=== PATIENT | female | born 1940 | race Caucasian/White ===

== ENCOUNTER → 2020-01-02 12:33 | Outpatient (BNVA) | payer MEDICARE, SELFPAY | PROVIDERS: Family Provider Internal Medicine; PCP Internal Medicine; Visit Provider Internal Medicine | DX: K75.4 Autoimmune hepatitis (principal); E03.9 Hypothyroidism, unspecified; E11.9 Type 2 diabetes mellitus without complications; Z86.718 Personal history of other venous thrombosis and embolism | CPT/HCPCS: 80053; 82105; 84443; 85025; 85610 ==

== ENCOUNTER → 2020-10-08 10:37 | Outpatient (BNVA) | payer MEDICARE, SELFPAY | PROVIDERS: Family Provider Internal Medicine; PCP Internal Medicine; Visit Provider Internal Medicine | DX: K75.4 Autoimmune hepatitis (principal) | CPT/HCPCS: 80053; 84443; 85025 ==

== ENCOUNTER → 2021-07-22 10:12 | Outpatient (BNVA) | payer MEDICARE, SELFPAY | PROVIDERS: Family Provider Internal Medicine; PCP Internal Medicine; Visit Provider Internal Medicine | DX: K75.4 Autoimmune hepatitis (principal); M48.061 Spinal stenosis, lumbar region without neurogenic claudication; G89.4 Chronic pain syndrome; Z86.718 Personal history of other venous thrombosis and embolism; Z79.899 Other long term (current) drug therapy | CPT/HCPCS: 80053; 80061; 83550; 84443; 85025; 85651 ==

== ENCOUNTER 2024-04-14 12:32 | Inpatient (IN) | payer MEDICARE, SELFPAY ==
[2024-04-14] VITALS (16 sets, daily range): BP systolic 119–188; BP diastolic 67–106; PULSE 46–62; RESP 14–18; TEMP 37–37.2; O2SAT 93–96; BMI 17.4
--- NOTE | 2024-04-14 12:56 | XRR_ITS ---
PROCEDURE INFORMATION: Exam: XR Right Hip Exam date and time: 04/14/2024 1:27 PM Age: 83 years old Clinical indication: Injury or trauma; Fall; Blunt trauma (contusions or hematomas); Right; Hip TECHNIQUE: Imaging protocol: Radiologic exam of the right hip. Views: 1 view hip with pelvis when performed. COMPARISON: CR XR lumbar spine f/e only [id number] 07/04/2017 3:54 PM FINDINGS: Bones/joints: Acute mildly displaced impacted femoral neck fracture on the right. Pelvic ring is grossly intact. Sacrum and coccyx are mostly obscured by bowel gas/stool. Large stool burden. Soft tissues: No gross soft tissue abnormality. XR/XR hip RT 2-3V wo/w pel* [id number] IMPRESSION: 1. Acute femoral neck fracture on the right.
--- NOTE | 2024-04-14 12:56 | XRR_ITS ---
PROCEDURE INFORMATION: Exam: XR Left Humerus Exam date and time: 04/14/2024 1:27 PM Age: 83 years old Clinical indication: Injury or trauma; Fall; Blunt trauma (contusions or hematomas); Arm, upper; Left TECHNIQUE: Imaging protocol: Radiologic exam of the left humerus. Views: 2 or more views. COMPARISON: No relevant prior studies available. FINDINGS: Bones/joints: The humerus is grossly intact. No evidence of fracture. Soft tissues: No gross soft tissue abnormality. XR/[place] [id number] IMPRESSION: 1. No evidence of fracture or malalignment.
--- NOTE | 2024-04-14 13:36 | XRR_ITS ---
PROCEDURE INFORMATION: Exam: XR Right Femur Exam date and time: 04/14/2024 1:38 PM Age: 83 years old Clinical indication: Injury or trauma; Fall; Blunt trauma; Hip; Right; Additional info: Hip FX TECHNIQUE: Imaging protocol: Radiologic exam of the right femur. Views: 2 views. COMPARISON: CR XR hip RT 2-3V wo/w pel* [id number] 04/14/2024 1:27 PM FINDINGS: Bones/joints: Acute mildly displaced/impacted femoral neck fracture on the right. Mid-distal femur is grossly intact. Chondrocalcinosis of the menisci noted. Soft tissues: Grossly unremarkable. XR/XR femur RT min 2V* [id number] IMPRESSION: 1. Acute femoral neck fracture on the right.
--- NOTE | 2024-04-14 13:36 | XRR_ITS ---
PROCEDURE INFORMATION: Exam: XR Chest Exam date and time: 04/14/2024 1:38 PM Age: 83 years old Clinical indication: Cough and dyspnea; Additional info: Dyspnea/cough TECHNIQUE: Imaging protocol: Radiologic exam of the chest. Views: 1 view. COMPARISON: [place] [id number] 04/14/2024 1:27 PM FINDINGS: Lungs: No focal consolidation. Suspected emphysematous changes. Pleural spaces: No evidence of pneumothorax. No evidence of pleural effusion. Heart/Mediastinum: Cardiomediastinal silhouette is within normal limits. Bones/joints: No evidence of acute osseous abnormality. XR/XR chest 1V portable [id number] IMPRESSION: 1. No acute cardiopulmonary abnormality.
--- NOTE | 2024-04-14 13:39 | ED_ITS ---
HPI - Fall 2 General: Chief Complaint: Fall Stated Complaint: fall - right hip/leg injury L arm injury Time Seen by Provider: 04/14/24 12:56 History of Present Illness: 83-year-old female presents emergency ro om after a fall this morning around 5 AM. She is a ground-level mechanical fall when she got up to answer the phone. Primarily complaining of right hip pain she has not been able to bear weight since she thought she is bruised it to try and waited out she did not come in until about 1:00 this afternoon. She initially told me she is not on any anticoagulants review of her chart showed she is on warfarin she said she started that for blood clots that were occurred several years ago but she only takes it intermittently. She also complaining little bit injury to her left arm. No chest pain or shortness of breath. Associated symptoms-after fall: Denies abdominal pain, chest pain or neck pain Related Data Home Medications Medication Instructions Recorded Confirmed cholecalciferol (vitamin D3) 125 5,000 unit PO DAILY 05/17/19 04/14/24 mcg (5,000 unit) capsule ferrous sulfate 325 mg (65 mg 325 mg PO DAILY 05/17/19 04/14/24 iron) tablet multivitamin 1 tab PO QAM 05/17/19 04/14/24 aspirin 325 mg tablet 325 mg PO Q4H 04/14/24 04/14/24 furosemide 80 mg tablet 80 mg PO DAILY PRN Edema 04/14/24 04/14/24 potassium chloride 20 mEq 20 meq PO DAILY 04/14/24 04/14/24 tablet,extended release(part/cryst) Previous Rx's Medication Instructions Recorded levothyroxine 100 mcg tablet 100 mcg PO DAILY #90 tabs 06/28/21 prednisone 5 mg tablet 5 mg PO DAILY #90 tabs 06/28/21 ropinirole 1 mg tablet 1 mg PO BID #180 tabs 06/28/21 warfarin 5 mg tablet 5 mg PO DAILY #90 tabs 06/28/21 fentanyl 75 mcg/hr transdermal 1 patch topical Q48H 1 month #15 ea 04/05/22 patch oxycodone-acetaminophen 10 mg-325 1 tab PO Q6H PRN pain 1 month #90 04/05/22 mg tablet (Percocet) tabs Allergies Allergy/AdvReac Type Severity Reaction Status Date / Time alendronate sodium Allergy Unknown Verified 04/14/24 13:11 [From Fosamax] azathioprine [From Imuran] Allergy Unknown Verified 04/14/24 13:11 risedronate sodium Allergy Unknown Verified 04/14/24 13:11 [From Actonel] tetracycline Allergy Unknown Verified 04/14/24 13:11 Review of Systems 2 Const: Denies: fever(s) or chills Card: Denies: chest pain Resp: Denies: dyspnea GI: Denies: abdominal pain : Denies: dysuria, urinary frequency or urinary urgency Musc: Reports: joint pain (Right hip); Denies: neck pain or back pain Skin/Breast: Denies: rash PFSH ED 2 PFSH: Medical History Iron deficiency Thyroid disease RLS (restless legs syndrome) Degenerative lumbar spinal stenosis Personal history of malignant neoplasm of other parts of uterus Chronic pain Autoimmune hepatitis Surgical History S/P laminectomy with spinal fusion S/P hysterectomy S/P knee surgery X3 , RIGHT S/P appendectomy Family History Mother Cancer LUNG CANCER Brother Heart disease Diabetes Other Myocardial infarction Social History Smoking and tobacco/nicotine status: former use of tobacco/nicotine Alcohol intake: never Substance/Drug Use: never Lives independently: Yes Household members: spouse Housing: House Marital status: Current occupational status: disabled Physical Exam 2 Const: GENERAL APPEARANCE: cooperative ORIENTATION/CONSCIOUSNESS: Yes awake, Yes oriented to person, Yes oriented to place and Yes oriented to time HENMT: COMMON NORMALS: normocephalic, atraumatic and hearing grossly normal bilaterally HEAD & SCALP: normocephalic and atraumatic Resp: COMMON NORMALS: normal respiratory effort, No retractions, No use of accessory muscles and clear to auscultation bilaterally AUSCULTATION: clear to auscultation bilaterally Cardio: COMMON NORMALS: regular rate, regular rhythm and No murmurs present (Cardio) RATE: regular rate RHYTHM: regular rhythm GI: COMMON NORMALS: Soft to palpation and No hepatosplenomegaly present A USCULTATION: Yes normoactive bowel sounds PALPATION: Yes Soft to palpation, No Tenderness to palpation present (GI), No Guarding due to palpation present (GI) and Yes No hepatosplenomegaly present Extremity: COMMON NORMALS: normal to inspection, capillary refill normal, no clubbing, cyanosis or edema, no calf tenderness and no pedal edema Neuro: SENSORIUM/ORIENTATION: Yes oriented to person, Yes oriented to place and Yes oriented to time Skin: COMMON NORMALS: no rashes or lesions noted GENERAL SKIN EXAM: no rashes or lesions noted Course 2 Vital Signs: Vital signs: Vital Signs Temperature 98.9 F 04/14/24 13:08 Pulse Rate 61 04/14/24 13:20 Respiratory Rate 18 04/14/24 13:08 Blood Pressure 176/76 04/14/24 13:20 Pulse Oximetry 94 04/14/24 13:20 Oxygen Delivery Me thod Room Air 04/14/24 13:20 MDM - Fall Medical Decision Making Right subcapital hip fracture. Remote history of DVT. INR was 1.8. Naoples has been placed will admit discussed with Dr. Madison he anticipates surgery tomorrow he is asked us to order a CT of the hip for surgical planning. Admit to hospitalist service with Dr. Zaragoza Lab Data 04/14/24 14:00 04/14/24 14:00 Radiology Impressions Hip/Pelvis X-Ray 04/14/24 12:56 IMPRESSION: 1. Acute femoral neck fracture on the right. Humerus X-Ray 04/14/24 12:56 IMPRESSION: 1. No evidence of fracture or malalignment. Chest X-Ray 04/14/24 13:36 IMPRESSION: 1. No acute cardiopulmonary abnormality. ADDENDUM: 04/14/24 1421 Heart/Mediastinum: Suspected hiatal hernia. Cardiomediastinal silhouette is otherwise within normal limits. Femur X-Ray 04/14/24 13:36 IMPRESSION: 1. Acute femoral neck fracture on the right. Forearm X-Ray 04/14/24 14:03 IMPRESSION: 1. No evidence of fracture or subluxation. Laboratory Results WBC 13.81 10^3/uL (3.29-11.43) H 04/14/24 14:00 RBC 4.18 10^6/uL (3.85-5.65) 04/14/24 14:00 Hgb 13.20 g/dL (11.27-16.99) 04/14/24 14:00 Hct 41.3 % (36-47) 04/14/24 14:00 MCV 98.8 fl (85-98) H 04/14/24 14:00 MCH 31.6 pg (27-33) 04/14/24 14:00 MCHC 32.0 g/dL (30-55) 04/14/24 14:00 RDW 14.1 % (12.1-15.1) 04/14/24 14:00 Plt Count 122 10^3/cmm (157-399) L 04/14/24 14:00 MPV 11.4 fL (7.4-10.4) H 04/14/24 14:00 Neut % (Auto) 78.9 % 04/14/24 14:00 Lymph % (Auto) 9.6 % 04/14/24 14:00 [place] % (Auto) 9.6 % 04/14/24 14:00 Eos % (Auto) 1.0 % 04/14/24 14:00 Baso % (Auto) 0.4 % 04/14/24 14:00 Neut # (Auto) 10.90 10^3/uL (1.8-7.7) H 04/14/24 14:00 Lymph # (Auto) 1.3 10^3/uL (0.8-4.8) 04/14/24 14:00 [place] # (Auto) 1.3 10^3/uL (0.2-0.9) H 04/14/24 14:00 Eos # (Auto) 0.1 10^3/uL (0.0-0.8) 04/14/24 14:00 Baso # (Auto) 0.1 10^3/uL (0.0-0.1) 04/14/24 14:00 Nucleated RBC % (auto) 0 % 04/14/24 14:00 Nucleated RBCs # 0.0 /100WBC 04/14/24 14:00 PT 21.50 SECONDS (12.1-14.9) H 04/14/24 14:00 INR 1.80 (0.8-1.2) H 04/14/24 14:00 Sodium 141 mmol/L (136-145) 04/14/24 14:00 Potassium 3.9 mmol/L (3.5-5.1) 04/14/24 14:00 Chloride 108 mmol/L (98-107) H 04/14/24 14:00 Carbon Dioxide 24 mmol/L (22-29) 04/14/24 14:00 Anion Gap 12.9 (5-19) 04/14/24 14:00 BUN 28 mg/dL (8-23) H 04/14/24 14:00 Creatinine 0.8 mg/dL (0.5-0.9) 04/14/24 14:00 GFR Calculation Not Reportable 04/14/24 14:00 Glucose 89 mg/dL (65-115) 04/14/24 14:00 Calculated Osmolality 297 mOsm/kg (285-295) H 04/14/24 14:00 Calcium 9.6 mg/dL (8.5-10.5) 04/14/24 14:00 Total Bilirubin 0.5 mg/dL (0.15-1.2) 04/14/24 14:00 AST 27 U/L (0-32) 04/14/24 14:00 ALT 24 U/L (0-33) 04/14/24 14:00 Alkaline Phosphatase 94 U/L (35-105) 04/14/24 14:00 Total Protein 6.7 g/dL (6.6-8.7) 04/14/24 14:00 Albumin 3.8 g/dL (3.5-5.2) 04/14/24 14:00 Globulin 2.9 g/dL (1.3-4.6) 04/14/24 14:00 All radiology interpretation(s) finalized by discharge Discharge Plan Discharge Patient Disposition: Admitted As Inpatient Clinical Impression: Hip fracture, right, History of DVT (deep vein thrombosis) Condition: Stable Prescriptions: No Action ferrous sulfate 325 mg (65 mg iron) tablet 325 mg PO DAILY multivitamin Tablet 1 tab PO QAM cholecalciferol (vitamin D3) 5,000 unit capsule 5,000 unit PO DAILY warfarin 5 mg tablet 5 mg PO DAILY Qty: 90 3RF ropinirole 1 mg tablet 1 mg PO BID Qty: 180 3RF prednisone 5 mg tablet 5 mg PO DAILY Qty: 90 3RF levothyroxine 100 mcg tablet 100 mcg PO DAILY Qty: 90 3RF fentanyl 75 mcg/hr patch 72 hour 1 patch topical Q48H 30 Days Qty: 15 0RF oxycodone-acetaminophen [Percocet] 10-325 mg tablet 1 tab PO Q6H PRN (Reason: pain) 30 Days Qty: 90 0RF potassium chloride 20 mEq tablet,ER particles/crystals 20 meq PO DAILY furosemide 80 mg tablet 80 mg PO DAILY PRN (Reason: Edema) aspirin 325 mg Tablet 325 mg PO Q4H Referrals: Bandar Curran MD [Primary Care Provider] - Coding Level of Care Code ED Supervisor [facility] for Sharif Peterson
--- NOTE | 2024-04-14 13:59 | CTR_ITS ---
PROCEDURE INFORMATION: Exam: CT Right Lower Extremity, Hip Exam date and time: 04/14/2024 2:31 PM Age: 83 years old Clinical indication: Pain and abnormal findings; Abnormal imaging study; XR right hip; Additional info: Hip FX TECHNIQUE: Imaging protocol: CT of the right lower extremity without contrast was performed. Exam focused on the hip. Radiation optimization: All CT scans at this facility use at least one of these dose optimization techniques: automated exposure control; mA and/or kV adjustment per patient size (includes targeted exams where dose is matched to clinical indication); or iterative reconstruction. COMPARISON: CR XR hip RT 2-3V wo/w pel* [id number] 04/14/2024 1:27 PM RADIATION DOSE METRICS: Total DLP (mGy-cm): 246.32 FINDINGS: Bones/joints: Impacted and minimally angulated fracture through proximal and mid aspect of the right femoral neck. No dislocation. Bone mineralization is normal. Soft tissues: Chondrocalcinosis noted. Vascular calcifications noted. Minimal soft tissue swelling adjacent to the fracture without large hematoma. No soft tissue air. CT/CT hip RT wo con* [id number] IMPRESSION: Impacted and minimally angulated fracture through proximal and mid aspect of the right femoral neck. No dislocation.
--- NOTE | 2024-04-14 14:03 | XRR_ITS ---
PROCEDURE INFORMATION: Exam: XR Left Forearm Exam date and time: 04/14/2024 1:45 PM Age: 83 years old Clinical indication: Injury or trauma; Fall; Blunt trauma (contusions or hematomas); Arm, lower; Left TECHNIQUE: Imaging protocol: Radiologic exam of the left forearm. Views: 2 views. COMPARISON: No relevant prior studies available. FINDINGS: Bones/joints: Radius and ulna are grossly intact. Elbow is grossly intact without evidence of effusion. Soft tissues: No gross soft tissue abnormality. No evidence of radiopaque foreign body. XR/XR forearm LT 2V [id number] IMPRESSION: 1. No evidence of fracture or subluxation.
[2024-04-14 14:09] LABS: Basophils # 0.1 10^3/uL (0.0-0.1); Basophils % 0.4 %; Eosinophils # 0.1 10^3/uL (0.0-0.8); Hematocrit 41.3 % (36-47); Lymphocytes # 1.3 10^3/uL (0.8-4.8); Lymphocytes % 9.6 %; Mean Corpuscular Hemoglobin 31.6 pg (27-33); Mean Corpuscular Volume 98.8 fl (85-98); Mean Platelet Volume 11.4 fL (7.4-10.4); Monocytes # 1.3 10^3/uL (0.2-0.9); Monocytes % 9.6 %; Neutrophils % 78.9 %; Nucleated Red Blood Cells % 0 %; Platelet Count 122 10^3/cmm (157-399); Red Blood Count 4.18 10^6/uL (3.85-5.65); Red Cell Distribution Width 14.1 % (12.1-15.1); White Blood Count 13.81 10^3/uL (3.29-11.43)
--- NOTE | 2024-04-14 14:18 | P.CONIM_ITS ---
<Statement entered by Bhavin Griffin DO - 04/16/24 07:32> Reviewed and agree with PAs assessment and plan. Patient was seen and examined by myself on 04/15/2024. We had a CT scan of the hip which was reviewed and demonstrates valgus impacted femoral neck fracture this actually is in good alignment would be amendable for cannulated screw fixation further history delineates that after her fall she was able to put and ambulate with weightbearing on this. Her leg lengths clinically are comparable and no evidence of shortening. She is able to tolerate a gentle logroll examination but does have pain on end ranges and does have a ability to lift the heel up off the bed but does have some pain with this. Ultimately I feel given her history with this this has been a stable valgus impacted femoral neck fracture and once again reviewing of the CT scan we talked about her options as far as doing nothing right hip CRPP versus right hip hemiarthroplasty. We talked about these options in detail as far as the ins and outs of the procedures the risk benefits complications alternatives with each. Risk of surgery include but are not limited to make a better make it worse, injury to nerves vessels or tendons, infection, hardware failure, persistent pain. Through shared decision making with the patient patient elects to proceed with a right hip CRPP. I did express once I get her on the table I will confirm that this has not moved since her last x-rays to confirm that still there is a satisfactory alignment and valgus impacted femoral neck fracture. She understands the ins and outs procedure and elects to proceed with surgical invention we will get her added onto the surgery schedule today. All questions answered. Bhavin Griffin DO Orthopedic surgery Documented by User: QUINTON Gutierrez 04/14/24 15:15 Providers/Reason For Consult 2 Consulting Physician/Specialty*: Dr. Elias DO/orthopedic surgeon Reason for Consult*: Right Hip fracture Requesting Physician: Dr. Dinh, emergency department Primary Care Provider: Bandar Curran MD History of Present Illness History of Present Illness Shiva Liang is a 83 year old female that Ortho was consulted on for right hip fracture after fall. Patient states that she was up walking in her house to answer a phone and lost her balance and fell. After fall she has been having right hip pain and it hurt for her to put any weight on right leg. Denies any head trauma or loss of consciousness. Patient did states she had a small abrasion on left forearm after fall. Denies any pain in her extremities bilaterally and no pain on left lower leg. Patient states she is very active and also has a who has some health issues and she has been helping out with him. Patient will use a walker or cane sometimes at baseline but states the majority of the time she ambulates without assistive device. Patient takes warfarin daily for DVT history. Denied any symptoms such as chest pain, shortness of breath, fever, chills, abdominal pain, nausea/vomiting or dysuria preceding fall. Review of Systems 2 General: Reports: 10 or more systems reviewed and unremarkable except in HPI and below Const: Denies: fever(s) or chills Card: Denies: chest pain or palpitations Resp: Denies: dyspnea, productive cough or non-productive cough GI: Denies: abdominal pain, nausea or vomiting : Denies: dysuria Musc: Reports: joint pain (Right hip) and limited range of motion (right hip) Skin/Breast: Reports: new lesions (Abrasion on left forearm) Medications/Allergies Home Medications Medication Instructions Recorded Confirmed Last Taken Type cholecalciferol (vitamin D3) 125 5,000 unit PO DAILY 05/17/19 04/14/24 04/13/24 History mcg (5,000 unit) capsule ferrous sulfate 325 mg (65 mg 325 mg PO DAILY 05/17/19 04/14/24 04/13/24 History iron) tablet multivitamin 1 tab PO QAM 05/17/19 04/14/24 04/13/24 History levothyroxine 100 mcg tablet 100 mcg PO DAILY #90 tabs 06/28/21 04/14/24 04/13/24 Rx prednisone 5 mg tablet 5 mg PO DAILY #90 tabs 06/28/21 04/14/24 04/13/24 Rx ropinirole 1 mg tablet 1 mg PO BID #180 tabs 06/28/21 04/14/24 04/13/24 Rx warfarin 5 mg tablet 5 mg PO DAILY #90 tabs 06/28/21 04/14/24 04/13/24 Rx fentanyl 75 mcg/hr transdermal 1 patch topical Q48H 1 month #15 ea 04/05/22 04/14/24 04/14/24 Rx patch oxycodone-acetaminophen 10 mg-325 1 tab PO Q6H PRN pain 1 month #90 04/05/22 04/14/24 Unknown Rx mg tablet (Percocet) tabs aspirin 325 mg tablet 325 mg PO Q4H 04/14/24 04/14/24 04/14/24 History furosemide 80 mg tablet 80 mg PO DAILY PRN Edema 04/14/24 04/14/24 Unknown History potassium chloride 20 mEq 20 meq PO DAILY 04/14/24 04/14/24 04/13/24 History tablet,extended release(part/cryst) Allergies Allergy/AdvReac Type Severity Reaction Status Date / Time alendronate sodium Allergy Unknown Verified 04/14/24 13:11 [From Fosamax] azathioprine [From Imuran] Allergy Unknown Verified 04/14/24 13:11 risedronate sodium Allergy Unknown Verified 04/14/24 13:11 [From Actonel] tetracycline Allergy Unknown Verified 04/14/24 13:11 PFSH Acute 2 PFSH: Medical History Iron deficiency Thyroid disease RLS (restless legs syndrome) Degenerative lumbar spinal stenosis Personal history of malignant neoplasm of other parts of uterus Chronic pain Autoimmune hepatitis Surgical History S/P laminectomy with spinal fusion S/P hysterectomy S/P knee surgery X3 , RIGHT S/P appendectomy Family History Mother Cancer LUNG CANCER Brother Heart disease Diabetes Other Myocardial infarction Social History Smoking and tobacco/nicotine status: former use of tobacco/nicotine Alcohol intake: never Substance/Drug Use: never Lives independently: Yes Household members: spouse Housing: House Marital status: Current occupational status: disabled Vitals/I&O/Wt Last Vital Signs Temp 98.9 F 04/14/24 13:08 Pulse 61 04/14/24 13:20 Resp 18 04/14/24 13:08 BP 176/76 04/14/24 13:20 Pulse Ox 94 04/14/24 13:20 O2 Del Method Room Air 04/14/24 13:20 Weight last 48 hrs Weight 105 lb Physical Exam 2 Const: COMMON NORMALS: no acute distress and alert Resp: COMMON NORMALS: normal respiratory effort and No retractions Cardio: COMMON NORMALS: Peripheral pulses 2+ throughout PERIPHERAL PULSES: Peripheral pulses 2+ throughout Extremity: NARRATIVE EXTREMITY EXAM: Right lower extremity-no obvious deformity and leg is not shortened or externally rotated. Positive logroll test. Tenderness to palpation of right hip. compartments are soft and compressible. Patient can Wiggle toes. Toes are warm and well-perfused. Pedal pulse 2+. Secondary assessment of other extremities. Upper extremities-no visible injuries, abrasions. Full range of motion in shoulders, elbows and wrist. no tenderness to palpation of shoulders or wrist. Left lower extremity-no visible injury or trauma seen. Full range of motion in hip. Negative logroll test. Patient able to perform straight leg raise and can dorsiflex plantarflex foot. Pedal pulse 2+ and patient can wiggle toes. Neuro: SENSORIUM/ORIENTATION: Yes alert Skin: GENERAL SKIN EXAM: dry skin Data 04/16/24 05:43 04/16/24 05:43 Xray Ortho: My impression: Right hip x-rays reviewed and interpreted by myself and Dr. Griffin the orthopedic surgeon.-Findings show valgus impacted femoral neck fracture. Radiologist's impression: Patient: Shiva Liang Unit #: [id number] : 1940 Age/Sex: 83 / F ADM Date: 04/14/24 Loc: ER Room/Bed: Attending Dr: Ordering Provider/Ordering MD: Benson Dinh DO Date of Service: 04/14/24 Procedure(s): XR hip RT 2-3V wo/w pel* [id number] Accession Number(s): [id number] Report Number: [id number] PROCEDURE INFORMATION: Exam: XR Right Hip Exam date and time: 04/14/2024 1:27 PM Age: 83 years old Clinical indication: Injury or trauma; Fall; Blunt trauma (contusions or hematomas); Right; Hip TECHNIQUE: Imaging protocol: Radiologic exam of the right hip. Views: 1 view hip with pelvis when performed. COMPARISON: CR XR lumbar spine f/e only [id number] 07/04/2017 3:54 PM FINDINGS: Bones/joints: Acute mildly displaced impacted femoral neck fracture on the right. Pelvic ring is grossly intact. Sacrum and coccyx are mostly obscured by bowel gas/stool. Large stool burden. Soft tissues: No gross soft tissue abnormality. XR/XR hip RT 2-3V wo/w pel* [id number] IMPRESSION: 1. Acute femoral neck fracture on the right. Dictated By: Jose M Arriaga MD A&P Assessment and plan (1) Hip fracture, right: Plan Plan: -Imaging and Labs reviewed -Hospitalist on board for medical management. -VTE prophylaxis -Nonweightbearing on right leg -Pain control -Hold daily blood thinner -N.p.o. after midnight -CT of right hip ordered Pt has a Valgus impacted femoral neck fracture. We will get a CT scan to further evaluate fracture pattern. Surgery tomorrow for Screw fixation vs Hemiarthoplasty pending CT findings. Coding Level of Care Code Acute Code for [facility] Diagnoses Hip fracture, right S72.001A Documented by User: Bhavin Griffin DO 04/16/24 07:28 Medications/Allergies Home Medications Medication Instructions Recorded Confirmed Last Taken Type cholecalciferol (vitamin D3) 125 5,000 unit PO DAILY 05/17/19 04/14/24 04/13/24 History mcg (5,000 unit) capsule ferrous sulfate 325 mg (65 mg 325 mg PO DAILY 05/17/19 04/14/24 04/13/24 History iron) tablet multivitamin 1 tab PO QAM 05/17/19 04/14/24 04/13/24 History levothyroxine 100 mcg tablet 100 mcg PO DAILY #90 tabs 06/28/21 04/14/24 04/13/24 Rx prednisone 5 mg tablet 5 mg PO DAILY #90 tabs 06/28/21 04/14/24 04/13/24 Rx ropinirole 1 mg tablet 1 mg PO BID #180 tabs 06/28/21 04/14/24 04/13/24 Rx warfarin 5 mg tablet 5 mg PO DAILY #90 tabs 06/28/21 04/14/24 04/13/24 Rx fentanyl 75 mcg/hr transdermal 1 patch topical Q48H 1 month #15 ea 04/05/22 04/14/24 04/14/24 Rx patch oxycodone-acetaminophen 10 mg-325 1 tab PO Q6H PRN pain 1 month #90 04/05/22 04/14/24 Unknown Rx mg tablet (Percocet) tabs aspirin 325 mg tablet 325 mg PO Q4H 04/14/24 04/14/24 04/14/24 History furosemide 80 mg tablet 80 mg PO DAILY PRN Edema 04/14/24 04/14/24 Unknown History potassium chloride 20 mEq 20 meq PO DAILY 04/14/24 04/14/24 04/13/24 History tablet,extended release(part/cryst) Allergies Allergy/AdvReac Type Severity Reaction Status Date / Time alendronate sodium Allergy Unknown Verified 04/14/24 13:11 [From Fosamax] azathioprine [From Imuran] Allergy Unknown Verified 04/14/24 13:11 risedronate sodium Allergy Unknown Verified 04/14/24 13:11 [From Actonel] tetracycline Allergy Unknown Verified 04/14/24 13:11 PFSH Acute 2 PFSH: Medical History Iron deficiency Thyroid disease RLS (restless legs syndrome) Degenerative lumbar spinal stenosis Personal history of malignant neoplasm of other parts of uterus Chronic pain Autoimmune hepatitis Surgical History S/P laminectomy with spinal fusion S/P hysterectomy S/P knee surgery X3 , RIGHT S/P appendectomy Family History Mother Cancer LUNG CANCER Brother Heart disease Diabetes Other Myocardial infarction Social History Smoking and tobacco/nicotine status: former use of tobacco/nicotine Alcohol intake: never Substance/Drug Use: never Lives independently: Yes Household members: spouse Housing: House Marital status: Current occupational status: disabled Data 04/16/24 05:43 11/26/24 05:43 A&P Assessment and plan (1) Hip fracture, right: Plan Plan: -Imaging and Labs reviewed -Hospitalist on board for medical management. -VTE prophylaxis -Nonweightbearing on right leg -Pain control -Hold daily blood thinner -N.p.o. after midnight -CT of right hip ordered Pt has a Valgus impacted femoral neck fracture. We will get a CT scan to further evaluate fracture pattern. Surgery tomorrow for Screw fixation vs Hemiarthoplasty pending CT findings. Coding Level of Care Code Acute Code for [facility] Diagnoses Hip fracture, right S72.001A
[2024-04-14 14:22] LABS: Alanine Aminotransferase 24 U/L (0-33); Albumin Level 3.8 g/dL (3.5-5.2); Alkaline Phosphatase 94 U/L (35-105); Anion Gap 12.9 (5-19); Aspartate Amino Transferase 27 U/L (0-32); Blood Urea Nitrogen 28 mg/dL (8-23); Calcium 9.6 mg/dL (8.5-10.5); Carbon Dioxide 24 mmol/L (22-29); Chloride 108 mmol/L (98-107); Creatinine Clr Calc Pharmacy 46.3633; Globulin 2.9 g/dL (1.3-4.6); Glucose 89 mg/dL (65-115); Osmolality Calculated 297 mOsm/kg (285-295); Potassium 3.9 mmol/L (3.5-5.1); Sodium 141 mmol/L (136-145); Total Bilirubin 0.5 mg/dL (0.15-1.2); Total Protein 6.7 g/dL (6.6-8.7)
--- NOTE | 2024-04-14 14:32 | ECG_ITS ---
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
--- NOTE | 2024-04-14 14:32 | PM.HP ---
Providers/Chief Complaint Primary Care Provider: Bandar Curran MD Chief Complaint: fall - right hip/leg injury L arm injury History of Present Illness Shiva Liang is a 83 year old female with a past medical history of a DVT many years ago, on Coumadin, history of back surgeries, with chronic back pain, on fentanyl patch, oxycodone, hypertension, hypothyroidism, history of autoimmune hepatitis on chronic prednisone, who presents [facility] for [facility]. Patient tells me that her is currently hospitalized at [facility], he had called her this morning and she was going to answer the phone, when she suddenly lost her balance and fell, no loss of consciousness, no significant head trauma, no preceding chest pain, palpitations, or strokelike symptoms, or seizure symptoms, no dysuria, hematuria, denies any chest pain, she tells me that she is fairly active, she has been raking the leaves on her yard, she typically cooks and cleans in the home, she denies a cardiovascular history, no history of chest pain no history of strokes, no history of COPD, no history of PE Review of Systems Const: Denies: fever(s) Card: Denies: chest pain Resp: Denies: dyspnea GI: Denies: abdominal pain Medications/Allergies Home Medications Medication Instructions Recorded Confirmed Last Taken Type alprazolam 0.25 mg tablet (Xanax) 0.25 mg PO ONCE PRN 05/17/19 03/15/22 Unknown History cholecalciferol (vitamin D3) 125 5,000 unit PO ONCE 05/17/19 03/15/22 Unknown History mcg (5,000 unit) capsule docusate sodium 100 mg capsule 100 mg PO ONCE PRN 05/17/19 03/15/22 Unknown History (Colace) ferrous sulfate 325 mg (65 mg 325 mg PO ONCE 05/17/19 03/15/22 Unknown History iron) tablet multivitamin 1 tab PO QAM 05/17/19 03/15/22 Unknown History venlafaxine 37.5 mg 37.5 mg PO QAM 05/17/19 03/15/22 Unknown History capsule,extended release 24 hr levothyroxine 100 mcg tablet 100 mcg PO DAILY #90 tabs 06/28/21 03/15/22 Unknown Rx potassium chloride 20 mEq See Rx Instructions .Route 06/28/21 03/15/22 Unknown Rx tablet,extended release(part/cryst) .COMPLEX #90 tabs prednisone 5 mg tablet 5 mg PO DAILY #90 tabs 06/28/21 03/15/22 Unknown Rx ropinirole 1 mg tablet 1 mg PO BID #180 tabs 06/28/21 03/15/22 Unknown Rx warfarin 5 mg tablet 5 mg PO DAILY #90 tabs 06/28/21 03/15/22 Unknown Rx fentanyl 75 mcg/hr transdermal 1 patch topical Q48H 1 month #15 ea 04/05/22 Unknown Rx patch oxycodone-acetaminophen 10 mg-325 1 tab PO Q6H PRN pain 1 month #90 04/05/22 Unknown Rx mg tablet (Percocet) tabs furosemide 80 mg tablet 80 mg PO DAILY #90 tabs 04/06/22 Unknown Rx Allergies Allergy/AdvReac Type Severity Reaction Status Date / Time alendronate sodium Allergy Unknown Verified 04/14/24 13:11 [From Fosamax] azathioprine [From Imuran] Allergy Unknown Verified 04/14/24 13:11 risedronate sodium Allergy Unknown Verified 04/14/24 13:11 [From Actonel] tetracycline Allergy Unknown Verified 04/14/24 13:11 PFSH Acute PFSH: Medical History Iron deficiency Thyroid disease RLS (restless legs syndrome) Degenerative lumbar spinal stenosis Personal history of malignant neoplasm of other parts of uterus Chronic pain Autoimmune hepatitis Surgical History S/P laminectomy with spinal fusion S/P hysterectomy S/P knee surgery X3 , RIGHT S/P appendectomy Family History Mother Cancer LUNG CANCER Brother Heart disease Diabetes Other Myocardial infarction Social History Smoking and tobacco/nicotine status: former use of tobacco/nicotine Alcohol intake: never Substance/Drug Use: never Lives independently: Yes Household members: spouse Housing: House Marital status: Current occupational status: disabled Vitals/I&O/Wt Last Vital Signs Temp 98.9 F 04/14/24 13:08 Pulse 61 04/14/24 13:20 Resp 18 04/14/24 13:08 BP 176/76 04/14/24 13:20 Pulse Ox 94 04/14/24 13:20 O2 Del Method Room Air 04/14/24 13:20 Weight last 48 hrs Weight 47.627 kg Physical Exam Const: COMMON NORMALS: no acute distress and patient oriented x3 HENMT: COMMON NORMALS: normocephalic HEAD & SCALP: normocephalic Neck/C-Spine: COMMON NORMALS: no JVD Resp: COMMON NORMALS: normal respiratory effort, No retractions, No use of accessory muscles and clear to auscultation bilaterally AUSCULTATION: clear to auscultation bilaterally Cardio: COMMON NORMALS: regular rate, regular rhythm, S1 normal heart sound present and S2 normal heart sound present RATE: regular rate RHYTHM: regular rhythm HEART SOUNDS: S1 normal heart sound present and S2 normal heart sound present GI: COMMON NORMALS: Normal to inspection, nondistended, normoactive bowel sounds present, Soft to palpation and non-tender Extremity: COMMON NORMALS: no calf tenderness and no pedal edema Neuro: COMMON NORMALS: patient oriented x3 and CN's II-XII intact bilaterally Psych: COMMON NORMALS: mental status grossly normal Data 04/14/24 14:00 04/14/24 14:00 A&P Assessment and plan (1) Hip fracture, right: (2) History of DVT (deep vein thrombosis): Plan Right hip fracture -Status post mechanical fall -Pain control continue home fentanyl 75 mcg every 48 hours, changed today ? Continue home oxycodone 10-325every 6 hours as needed ? Is on Coumadin for DVT, INR 1.8, will hold Coumadin, monitor INR ? N.p.o. midnight # Orthopedic service on consult # Chest x-ray, UA, monitor INR Attestations Medical Necessity Statement*: Patient requires hospitalization, inpatient, greater than 2 midnights, for fall, right hip fracture Coding Level of Care Code Acute Code for [facility] Diagnoses Hip fracture, right S72.001A History of DVT (deep vein thrombosis) Z86.718
--- NOTE | 2024-04-14 14:33 | CTR_ITS ---
PROCEDURE INFORMATION: Exam: CT Head Without Contrast Exam date and time: 04/14/2024 2:36 PM Age: 83 years old Clinical indication: Injury or trauma; Fall; Bleeding/hemorrhage TECHNIQUE: Imaging protocol: Computed tomography of the head without contrast. Radiation optimization: All CT scans at this facility use at least one of these dose optimization techniques: automated exposure control; mA and/or kV adjustment per patient size (includes targeted exams where dose is matched to clinical indication); or iterative reconstruction. COMPARISON: No relevant prior studies available. RADIATION DOSE METRICS: Total DLP (mGy-cm): 971.18 FINDINGS: Brain: Mild, diffuse atrophy of the brain.There is ill-defined, fairly symmetric low-density within the cerebral deep white matter bilaterally which is likely the sequela of chronic ischemic change due to small vessel disease. Chronic lacunar infarcts in the basal ganglia regions No CT evidence of mass effect, intracranial hemorrhage, or acute infarct. Otherwise, unremarkable. Cerebral ventricles: Slightly prominent ventricles due to the atrophy. Otherwise, unremarkable. Paranasal sinuses: Visualized sinuses are unremarkable. No fluid levels. Mastoid air cells: Visualized mastoid air cells are well aerated. Bones: Unremarkable. No acute fracture. Soft tissues: Unremarkable. CT/CT head wo con* [id number] IMPRESSION: No acute findings.
[2024-04-14 14:56] LABS: Estmated Average Glucose 114; Hemoglobin A1C 5.6 % (4.0-6.0)
[2024-04-14 15:14] LABS: NT Pro B Type Natriuretic Pept 730 pg/mL (0-450); Procalcitonin 0.09 ng/mL (0-0.5); Thyroid Stimulating Hormone 17.06 uIU/mL (0.27-4.20)
[2024-04-14 15:25] LABS: Chol HDL Ratio 2.71 mg/dL (0.0-4.40); Cholesterol 195 mg/dL (0-200); HDL Cholesterol 72 mg/dL (60-100); LDL Cholesterol Calculated 109 mg/dL (50-129); LDL HDL Ratio 1.51 RATIO (0.00-3.22); Triglycerides 70 mg/dL (0-150)
[2024-04-14] MEDS: morphine 4 mg/mL SDV 1 mL IVP (18:04)
[2024-04-14] MEDS: pantoprazole 40 mg SDV IVP (19:21)
[2024-04-14] MEDS: ropinirole 1 mg Tablet PO (19:21)
[2024-04-14] MEDS: oxyCODONE-APAP 10-325 mg Tablet 1 TAB PO (20:40)
[2024-04-14] MEDS: sodium chloride 0.9% 1,000 ML 75 ML IV (20:41)
--- NOTE | 2024-04-14 21:00 | PC.NURSE ---
Patient has Fentanyl patch to lower back from home.
--- NOTE | 2024-04-14 21:23 | PC.NURSE ---
Unable to verify allergies, home medications, or immunizations with patient. Patient states Mary takes care of all of that. I asked patient if I can call her now to get the information. Patient states that Mary is ill and that it is best to not call her until 8 am or after tomorrow. Patient does not say what Mary is ill with. She says I don't tell people because she gets embarrassed easy, but sometimes she sleeps for 3 days.
--- NOTE | 2024-04-14 21:37 | PC.NURSE ---
Addendum entered by Ying Mooney RN 04/14/24 21:43: Unable to collect UA. Original Note: Patient came to floor with rudolph in place with no urine in it. ED states there has been no urine output in rudolph since it was placed. ED states that was the third attempt at a rudolph placement. Attempt to place rudolph x2 on the floor by myself and another RN and was unsuccessful. Bladder scan shows 550 ml. Rudolph from ED removed. Patient voided in fracture bedpan. Unable to place rudolph.
[2024-04-15] VITALS (15 sets, daily range): BP systolic 103–178; BP diastolic 54–94; PULSE 44–78; RESP 15–18; TEMP 36.3–37.7; O2SAT 90–95
[2024-04-15 03:23] LABS: Basophils % 0.4 %; Eosinophils # 0.3 10^3/uL (0.0-0.8); Eosinophils % 3.8 %; Hematocrit 36.3 % (36-47); Lymphocytes % 10.5 %; Mean Corpuscular Hemoglobin 31.8 pg (27-33); Mean Corpuscular Volume 99.5 fl (85-98); Mean Platelet Volume 11.9 fL (7.4-10.4); Monocytes % 11.4 %; Neutrophils # 6.66 10^3/uL (1.8-7.7); Neutrophils % 73.6 %; Nucleated Red Blood Cells % 0 %; Platelet Count 107 10^3/cmm (157-399); Red Blood Count 3.65 10^6/uL (3.85-5.65); White Blood Count 9.05 10^3/uL (3.29-11.43)
[2024-04-15 03:34] LABS: Alanine Aminotransferase 18 U/L (0-33); Albumin Level 3.2 g/dL (3.5-5.2); Alkaline Phosphatase 72 U/L (35-105); Aspartate Amino Transferase 21 U/L (0-32); Blood Urea Nitrogen 28 mg/dL (8-23); Calcium 8.9 mg/dL (8.5-10.5); Carbon Dioxide 25 mmol/L (22-29); Chloride 110 mmol/L (98-107); Creatinine Clr Calc Pharmacy 46.3633; Globulin 2.5 g/dL (1.3-4.6); Glucose 103 mg/dL (65-115); Magnesium 1.8 mg/dL (1.7-2.3); Osmolality Calculated 298 mOsm/kg (285-295); Phosphorus 2.7 mg/dL (2.5-4.5); Sodium 141 mmol/L (136-145); Total Bilirubin 0.4 mg/dL (0.15-1.2); Total Protein 5.7 g/dL (6.6-8.7)
[2024-04-15] MEDS: levothyroxine 100 mcg Tablet PO (08:46)
[2024-04-15] MEDS: oxyCODONE-APAP 10-325 mg Tablet 1 TAB PO ×2 (08:46→21:19)
[2024-04-15] MEDS: ropinirole 1 mg Tablet PO (08:46)
[2024-04-15] MEDS: venlafaxine ER (24HR) 37.5 mg Capsule PO (08:46)
[2024-04-15] MEDS: predniSONE 5 mg Tablet PO (08:47)
--- NOTE | 2024-04-15 09:48 | PC.CHAP ---
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 [] Patient/Family/Request visit [] Outpatient visit [] Follow-up visit [] Physician referral [] Code/Alert [x] Routine visit [] Staff referral [] Actively dying [] Patient sleeping [x] Family support [] [] Out of room [] Palliative care [] [] Receiving care in room [] Pre-surgical visit [] Trauma [] Long length of stay [] ICU visit [] Other: Relational/Emotional Strength [] Patient feels connected with others/family/visitors/staff [] Distress [] Loneliness/isolation [] Abandonment Spirituality of Patient x[] Person of Kimi [] Attends Taoist of their Kimi [x] Believes in Prayer [] Reads Bible or Oriental Orthodox materials [] There are Spiritual issues to be addressed Infrastructure Project Manager Interventions [x] Prayer [x] Active listening [] Non-anxious presence [] Spiritual/emotional support [] Crisis/trauma care [] Spiritual counseling [] Bereavement support [] Provided bereavement packet [x] Provided Bible/devotional materials [] Provided toy/stuffed animal, coloring book to patient or family member [] Provided Communion [] Anointing/[place] [] Salvation [x] Completed spiritual assessment [] Other: Impact on Illness or Injury [] Angry [] Fearful [] Anxious [] Often cries [] Exhaustion [] Unable to work [] Unable to attend episcopal [] Unable to walk/stand [] Unable to read [] Unable to drive [] Unable to eat/drink [] Unable to sleep [] Unable to be with family [] Patient intubated [] Other: Summary Time spent with patient 15 min
[2024-04-15 10:41] LABS: INR 1.62 (0.8-1.2)
--- NOTE | 2024-04-15 12:48 | PC.NURSE ---
Fluids delayed due to no inventory. Price Accuracy Supervisor aware. Store room called multiple times
[2024-04-15] MEDS: acetaminophen 1,000 MG/100 ML PIGGYBACK 400 MG IV (14:31)
--- NOTE | 2024-04-15 14:31 | P.ANESASSM_ITS ---
Pre-Anesthetic Assessment Height/Weight: Height 1.65 m Weight 47.627 kg Temp Pulse Resp BP Pulse Ox O2 Del Method 99.8 F H 51 L 18 169/91 93 Room Air 04/15/24 14:25 04/15/24 14:25 04/15/24 14:25 04/15/24 14:25 04/15/24 14:25 04/15/24 14:25 Operation Date: 04/15/24 16:20 Proposed Procedures p Hip Screw Closed Reduction Percutaneous Pinning Hip Screw(Right) - Bhavin Griffin DO Familial anesthetic complications: None Was Beta Michelle taken within 24 hours: N/A Was Clonidine taken within 24 hours: N/A Last intake: > 8 hrs Social Tobacco (remote smoking history) Exam alert, oriented x 3, clear to auscultation bilaterally and regular rate & rhythm Airway Mallampati: Class I Dentition: other (multiple missing) CV/HEM Deep Vein Thrombosis and Hypertension Hepatic hx autoimmune hepatitis Metabolic Thyroid Disease Anesthetic Plan ASA status: 3 Anesthesia: General Risk of > 500 ml blood loss (7ml/kg in children): No Medications/Allergies Home Medications Medication Instructions Recorded Confirmed Last Taken Type cholecalciferol (vitamin D3) 125 5,000 unit PO DAILY 05/17/19 04/14/24 04/13/24 History mcg (5,000 unit) capsule ferrous sulfate 325 mg (65 mg 325 mg PO DAILY 05/17/19 04/14/24 04/13/24 History iron) tablet multivitamin 1 tab PO QAM 05/17/19 04/14/24 04/13/24 History levothyroxine 100 mcg tablet 100 mcg PO DAILY #90 tabs 06/28/21 04/14/24 04/13/24 Rx prednisone 5 mg tablet 5 mg PO DAILY #90 tabs 06/28/21 04/14/24 04/13/24 Rx ropinirole 1 mg tablet 1 mg PO BID #180 tabs 06/28/21 04/14/24 04/13/24 Rx warfarin 5 mg tablet 5 mg PO DAILY #90 tabs 06/28/21 04/14/24 04/13/24 Rx fentanyl 75 mcg/hr transdermal 1 patch topical Q48H 1 month #15 ea 04/05/22 04/14/24 04/14/24 Rx patch oxycodone-acetaminophen 10 mg-325 1 tab PO Q6H PRN pain 1 month #90 04/05/22 04/14/24 Unknown Rx mg tablet (Percocet) tabs aspirin 325 mg tablet 325 mg PO Q4H 04/14/24 04/14/24 04/14/24 History furosemide 80 mg tablet 80 mg PO DAILY PRN Edema 04/14/24 04/14/24 Unknown History potassium chloride 20 mEq 20 meq PO DAILY 04/14/24 04/14/24 04/13/24 History tablet,extended release(part/cryst) Allergies Allergy/AdvReac Type Severity Reaction Status Date / Time alendronate sodium Allergy Unknown Verified 04/14/24 13:11 [From Fosamax] azathioprine [From Imuran] Allergy Unknown Verified 04/14/24 13:11 risedronate sodium Allergy Unknown Verified 04/14/24 13:11 [From Actonel] tetracycline Allergy Unknown Verified 04/14/24 13:11 Current Medications Generic Name Dose Route Start Last Admin Trade Name Freq PRN Reason Stop Dose Admin Sodium Chloride 1,000 mls @ 75 mls/hr 04/14/24 17:39 04/15/24 10:29 Sodium Chloride 0.9% IV Infused .[id number] EDEN Infusion Levothyroxine Sodium 100 mcg 04/15/24 09:00 04/15/24 08:46 Levothyroxine 100 Mcg Tablet PO 100 mcg DAILY EDEN Administration Oxycodone/Acetaminophen 1 tab 04/14/24 17:39 04/15/24 08:46 Oxycodone-Apap 10-325 Mg Tablet PO 1 tab Q6H PRN Administration pain Pantoprazole Sodium 40 mg 04/14/24 17:39 04/14/24 19:21 Pantoprazole 40 Mg Sdv IVP 40 mg Q24H EDEN Administration Prednisone 5 mg 04/15/24 09:00 04/15/24 08:47 Prednisone 5 Mg Tablet PO 5 mg DAILY EDEN Administration Ropinirole HCl 1 mg 04/14/24 18:00 04/15/24 08:46 Ropinirole 1 Mg Tablet PO 1 mg BID EDEN Administration Venlafaxine HCl 37.5 mg 04/15/24 09:00 04/15/24 08:46 Venlafaxine Er (24hr) 37.5 Mg Capsule PO 37.5 mg DAILY EDEN Administration PFSH Anesthesia Medical History Iron deficiency Thyroid disease RLS (restless legs syndrome) Degenerative lumbar spinal stenosis Personal history of malignant neoplasm of other parts of uterus Chronic pain Autoimmune hepatitis Surgical History S/P laminectomy with spinal fusion S/P hysterectomy S/P knee surgery X3 , RIGHT S/P appendectomy Family History Mother Cancer LUNG CANCER Brother Heart disease Diabetes Other Myocardial infarction Social History Smoking and tobacco/nicotine status: former use of tobacco/nicotine Alcohol intake: never Substance/Drug Use: never Lives independently: Yes Household members: spouse Housing: House Marital status: Current occupational status: disabled Data Anesthesia 04/15/24 02:56 04/15/24 02:56 Short CBC 04/14/24 04/15/24 Range/Units 14:00 02:56 WBC 13.81 H 9.05 (3.29-11.43) 10^3/uL Hgb 13.20 11.60 (11.27-16.99) g/dL Hct 41.3 36.3 (36-47) % MCV 98.8 H 99.5 H (85-98) fl Plt Count 122 L 107 L (157-399) 10^3/cmm Neut % (Auto) 78.9 73.6 % Neut # (Auto) 10.90 H 6.66 (1.8-7.7) 10^3/uL BMP 04/14/24 04/15/24 14:00 02:56 Sodium 141 141 Potassium 3.9 4.0 Chloride 108 H 110 H Carbon Dioxide 24 25 BUN 28 H 28 H Creatinine 0.8 0.8 Glucose 89 103 Calcium 9.6 8.9 Cardiac Enzymes 04/14/24 Range/Units 14:00 NT-Pro-B Natriuret Pep 730 H (0-450) pg/mL Liver Function 04/14/24 04/15/24 Range/Units 14:00 02:56 Total Bilirubin 0.5 0.4 (0.15-1.2) mg/dL AST 27 21 (0-32) U/L ALT 24 18 (0-33) U/L Alkaline Phosphatase 94 72 (35-105) U/L Albumin 3.8 3.2 L (3.5-5.2) g[facility] 04/[facility] 04/15/24 14:00 09:54 PT 21.50 H 19.80 H INR 1.80 H 1.62 H C-Reactive Protein 3.0 Cardiac Studies: 2 No Data to Display
[2024-04-15] MEDS: ketorolac 30 mg/mL INJ IVP (14:32)
[2024-04-15] MEDS: lactated ringers 500 ML IV (14:32)
[2024-04-15 14:33] LABS: Basophils % 0.4 %; Eosinophils # 0.2 10^3/uL (0.0-0.8); Eosinophils % 2.4 %; Hematocrit 38.6 % (36-47); Lymphocytes # 1.2 10^3/uL (0.8-4.8); Lymphocytes % 12.2 %; Mean Corpuscular HGB Conc 32.9 g/dL (30-55); Mean Corpuscular Hemoglobin 31.5 pg (27-33); Mean Corpuscular Volume 95.8 fl (85-98); Mean Platelet Volume 12.1 fL (7.4-10.4); Monocytes # 0.7 10^3/uL (0.2-0.9); Monocytes % 7.6 %; Neutrophils # 7.31 10^3/uL (1.8-7.7); Nucleated Red Blood Cells % 0 %; Platelet Count 113 10^3/cmm (157-399); Red Blood Count 4.03 10^6/uL (3.85-5.65); Red Cell Distribution Width 13.8 % (12.1-15.1)
[2024-04-15 14:55] LABS: Blood Urea Nitrogen 23 mg/dL (8-23); Calcium 9.4 mg/dL (8.5-10.5); Carbon Dioxide 24 mmol/L (22-29); Chloride 105 mmol/L (98-107); Creatinine Clr Calc Pharmacy 46.3633; Glucose 95 mg/dL (65-115); Osmolality Calculated 283 mOsm/kg (285-295); Sodium 135 mmol/L (136-145)
[2024-04-15] MEDS: sodium chloride 0.9% 1,000 ML 30 ML IV (16:12)
--- NOTE | 2024-04-15 16:39 | W.PM.OPSUD ---
Surgery/Procedure H&P Update DATE OF PROCEDURE: April 15, 2024 DATE H&P PERFORMED: 04/14/24 H&P UPDATE INFORMATION: I have reviewed H&P completed within last 30 days, I have examined patient prior to procedure and No changes to prior documentation CHANGES TO PREVIOUS DOCUMENTATION: Reviewed patient's CT scan as well as discussion with the patient and at this point in time this fracture would be amendable for a cannulated screw fixation to the right hip. We talked about this in detail she is active and was able to ambulate after this fall and had what appears to be a valgus impacted right femoral neck fracture at this point time we talked about the ins and outs procedure risk benefits complication alternatives surgery and through shared decision making patient elects proceed with surgical intervention. All questions answered at this time. Will proceed with right hip CRPP versus possible hip hemiarthroplasty all questions answered. PREOP DIAGNOSIS: Right hip valgus impacted femoral neck fracture PRIMARY INDICATION FOR PROCEDURE: Right hip valgus impacted femoral neck fracture PLANNED PROCEDURE: Operation Date: 04/15/24 16:20 Proposed Procedures p Hip Screw Closed Reduction Percutaneous Pinning Hip Screw(Right) - Bhavin Griffin DO
[2024-04-15] MEDS: ceFAZolin 2,000 MG in sodium chloride 0.9% (plus) 50 ML 100 MG IV (17:19)
--- NOTE | 2024-04-15 17:37 | P.PN_ITS ---
Subjective 2 Subjective: Patient was seen this morning, is also admitted, he is patient's roommate, she denies any pain, no cough, hip pain is well-controlled Vitals/I&O/Wt Last Vital Signs Temp 99.8 F H 04/15/24 14:25 Pulse 51 L 04/15/24 14:25 Resp 18 04/15/24 14:25 BP 169/91 04/15/24 14:25 Pulse Ox 93 04/15/24 14:25 O2 Del Method Room Air 04/15/24 14:25 04/15/24 04/15/24 04/15/24 06:59 14:59 22:59 Intake Total 1460 / 1460 500 / 1960 Balance 1460 / 1460 500 / 1960 Weight last 48 hrs Weight 47.627 kg Weight 47.627 kg Weight 47.627 kg Physical Exam 2 Const: COMMON NORMALS: no acute distress and patient oriented x3 Resp: COMMON NORMALS: normal respiratory effort, No retractions, No use of accessory muscles and clear to auscultation bilaterally AUSCULTATION: clear to auscultation bilaterally Cardio: COMMON NORMALS: regular rate, regular rhythm, S1 normal heart sound present and S2 normal heart sound present RATE: regular rate RHYTHM: r egular rhythm HEART SOUNDS: S1 normal heart sound present and S2 normal heart sound present GI: COMMON NORMALS: Normal to inspection, nondistended, normoactive bowel sounds present and non-tender Extremity: COMMON NORMALS: no pedal edema Neuro: COMMON NORMALS: patient oriented x3 Psych: COMMON NORMALS: mental status grossly normal Urinary Catheter Management: [place]: Cath Placed During This Visit: yes Urinary Catheter Date of Insertion: 04/14/24 Data 04/15/24 13:09 04/15/24 13:09 A&P Assessment and plan (1) Hip fracture, right: (2) History of DVT (deep vein thrombosis): Plan Right hip fracture -Status post mechanical fall -Pain control continue home fentanyl 75 mcg every 48 hours, changed today ? Continue home oxycodone 10-325every 6 hours as needed ? Is on Coumadin for DVT, INR 1.62, will hold Coumadin, monitor INR ? N.p.o. # Orthopedic service on consult # Chest x-ray, UA, monitor INR Attestations 2 Medical Necessity Statement*: Patient requires hospitalization for right hip fracture Diagnoses Hip fracture, right S72.001A History of DVT (deep vein thrombosis) Z86.718
--- NOTE | 2024-04-15 18:39 | P.OP_ITS ---
Operative Report Date of procedure: April 15, 2024 Surgeon: Bhavin Griffin DO Cattery Operator: Collin Griffin PA-C: PA was necessary for assistance in this case with leg positioning, assistance with instrumentation and wound closure and dressing application. Procedure: Preoperative diagnosis: Right hip valgus impacted femoral neck fracture Post-op diagnosis: Same Procedure done: Right hip?femoral neck closed reduction and percutaneous pinning Implants: 6.5 mm x 90?mm fully- threaded?cannulated screw 6.5 mm x 85?mm fully-threaded cannulated screw 6.5 mm x 85?mm partially-threaded cannulated screw 6.5 mm x 95 mm fully threaded was wasted as this was determined to being too long Surgeon: Bhavin Griffin DO Anesthesia: General Estimated blood loss: 10 mL IV fluids: 600 mL Urine output: See anesthesia record Complications: None Findings: See operative report narrative Condition: stable Disposition: floor Brief History: Patient is a 83-year-old female who sustained a ground-level fall had a valgus impacted right femoral neck in?emergency department. Patient?admitted by hospitalist team medically optimized, orthopedics was consulted For treatment recommendations.?Patient has been medically optimized.? We talked about treatment options given this after CT scan demonstrated an valgus impacted femoral neck fracture, in good alignment I feel this would be amendable for closed reduction and percutaneous pinning fixation.? Consent patient for right hip CRPP versus hip Leobardo we talked about this in detail as far as risk benefits complication alternatives of surgery understands even potential for possible hardware failure and further surgery.? Understand risk of surgery patient agree to proceed with surgical intervention all questions answered. Procedure: Patient seen and evaluated?in the preoperative holding area.? Consent was reviewed and signed with patient.? Operative extremity was marked.? Patient was then seen evaluated by anesthesia once cleared for surgery patient was taken back to the operative suite.? Patient was transported onto the [place] bed after undergoing general anesthetic.? Once properly anesthetized she was then placed onto the [place] bed placed in traction boots.? All bony prominences well-padded patient was appropriate secured to the bed.? Final timeout was performed.? Patient received appropriate preoperative antibiotics. Prior to prepping and draping, the fractured?hip was then inspected this was found to be on the traction table to be in excellent alignment position amenable for close reduction percutaneous pinning.? At this point time the right hip was then prepped and draped in standard orthopedic fashion. I started off with small percutaneous incision after marking the center center position of the femoral neck I started with my inferior and central calcar wire.? Guidepin was then advanced along the inferior border of the neck and advanced to appropriate position into the femoral head across the fracture site.? This was confirmed in multiple orthogonal images to be in appropriate position.? Next I plan for a inverted triangle configuration as result I then subsequently placed next my superior and anterior guidepin in appropriate position and then in parallel fashion placed my posterior and superior guidepin in appropriate position.? This was confirmed to have an excellent inverted triangle positioning on AP and lateral.? I then advanced the wires to appropriate length and then subsequently measured.? I then utilized the cannulated drill bit, Drilled, measured and then subsequently advanced the fully-threaded 6.5 mm x 90?mm cannulated screw and advanced this with excellent fixation on the inferior and central calcar screw. Originally trialed a 95 but this was determined was going to be too long before it but the lateral cortex and as result switch to a 90 fully threaded and had excellent purchase ? Next attention turned to the?superior and anterior?pin,?I then subsequently used the cannulated drill bit And subsequently drilled,?measured and placed a partially-threaded 6.5 mm x 85?mm fully-threaded cannulated screw and had excell ent fixation.?? Lastly we did the?Superior and posterior pin,?utilized the cannulated drill bit and subsequently drilled, measured and placed a partially-threaded 6.5 mm x 85?m m partially-threaded cannulated screw.? All 3 screws had excellent fixation and were advanced appropriate depth. At the end the procedure I backed the wires out to have appropriate visualization of the tips of the screws.? I then unlocked the traction boot and took the hip through range of motion with live fluoroscopic imaging utilizing approach and withdrawal technique and no screws penetrated the joint and fracture site was stable.? This completed the procedure. Guidepins were then subsequently removed wound was then thoroughly irrigated and closed with kobe for the small percutaneous sites.? This was then covered with Silverlon dressing.? Patient was then awake from anesthesia and taken to PACU in stable condition.? Patient tolerated procedure without any issues Disposition: Patient taken to PACU in stable condition recovering well.? Will be partial weightbearing 30 to 50%.? Dressing on in place will be changed as needed.? DVT prophylaxis.? Pain control.? PT/OT.? Postoperative antibiotics.?Patient will return to the floor.? Internal medicine on board as primary.?
--- NOTE | 2024-04-15 18:50 | W.PM.BPON ---
Date of Procedure: [April 15, 2024] Surgeon: [Dr. Griffin DO] Take Down Inspector(s): [Collin Griffin PA-C] Procedure(s) performed: [Right hip closed reduction percutaneous pinning] Findings of the procedure(s): [Right hip valgus impacted femoral neck fracture. Procedure went well and as planned] Estimated blood loss: [10 mL] Specimen(s) removed: [N/A] Post-operative diagnosis: [Right hip valgus impacted femoral neck fracture]
--- NOTE | 2024-04-15 18:53 | PM.PACU ---
PACU note Narrative: Patient is 83-year-old female who just underwent a right hip CRPP. Pt transferred to PACU in stable condition. Dressing is dry. pt is awake and alert. pt can wiggle toes and plantarflex and dorsiflex foot. Distal pulses are palpable toes are warm and well-perfused. Cap refill is normal and under 2 seconds. Sensation to foot is intact. Pain is controlled. Exam: awake Disposition: back to floor
--- NOTE | 2024-04-15 18:55 | XRR_ITS ---
PROCEDURE INFORMATION: Exam: XR Right Hip Exam date and time: 04/15/2024 7:05 PM Age: 83 years old Clinical indication: Device placement; Prior surgery; Surgery date: Post-operative (0-2 days); Surgery type: RT hip screws; Additional info: S/P R hip crpp TECHNIQUE: Imaging protocol: Radiologic exam of the right hip. Views: 1 view hip with pelvis when performed. COMPARISON: CT hip RT wo con* [id number] 04/14/2024 2:31 PM FINDINGS: Tubes, catheters and devices: The hardware appears intact. Bones/joints: Interval placement of intramedullary nails through the proximal right femur fracture. No dislocation. Soft tissues: Unremarkable. Other findings: No perihardware lucency. XR/XR hip RT 2-3V wo/w pel* [id number] IMPRESSION: As above.
--- NOTE | 2024-04-15 19:10 | ANE.PACU2 ---
Inpatient post-anesthesia follow up: Airway intact: Yes Vital signs: Temperature 99.0 F Pulse Rate 62 Respiratory Rate 17 Blood Pressure 151/77 Pulse Oximetry 94 Oxygen Delivery Me thod Room Air Oxygen Flow Rate Fraction of Inspir ed Oxygen Hydration adequate: Yes Nausea and vomiting: No Pain level: 1 Mental status: Baseline
[2024-04-15] MEDS: chlorhexidine gluconate 0.12% Btl 473 mL 30 ML MUCOUS MEM (21:19)
[2024-04-15] MEDS: sodium chloride 0.9% 1,000 ML 75 ML IV (21:20)
[2024-04-16] VITALS (8 sets, daily range): BP systolic 150–166; BP diastolic 60–77; PULSE 52–62; RESP 15–18; TEMP 36.7–37.2; O2SAT 92–98
[2024-04-16] MEDS: ceFAZolin 2,000 mg SDV 2000 MG IVP ×2 (02:10→08:33)
[2024-04-16] MEDS: acetaminophen 325 mg Tablet 650 MG PO (02:10)
[2024-04-16 06:18] LABS: Basophils % 0.3 %; Eosinophils % 0.2 %; Hematocrit 36.7 % (36-47); Lymphocytes % 9.1 %; Mean Corpuscular Hemoglobin 31.8 pg (27-33); Mean Corpuscular Volume 96.3 fl (85-98); Mean Platelet Volume 12.3 fL (7.4-10.4); Monocytes # 0.9 10^3/uL (0.2-0.9); Monocytes % 7.8 %; Neutrophils # 9.39 10^3/uL (1.8-7.7); Neutrophils % 82.1 %; Nucleated Red Blood Cells % 0 %; Platelet Count 118 10^3/cmm (157-399); Red Blood Count 3.81 10^6/uL (3.85-5.65); Red Cell Distribution Width 13.7 % (12.1-15.1); White Blood Count 11.43 10^3/uL (3.29-11.43)
[2024-04-16] MEDS: enoxaparin 30 mg/0.3 mL Syringe SUBCUT (06:33)
[2024-04-16] MEDS: oxyCODONE-APAP 10-325 mg Tablet 1 TAB PO ×2 (06:33→12:30)
[2024-04-16 06:36] LABS: INR 1.28 (0.8-1.2)
[2024-04-16 06:48] LABS: Alanine Aminotransferase 15 U/L (0-33); Albumin Level 3.6 g/dL (3.5-5.2); Alkaline Phosphatase 68 U/L (35-105); Anion Gap 13.1 (5-19); Aspartate Amino Transferase 20 U/L (0-32); Blood Urea Nitrogen 21 mg/dL (8-23); Calcium 8.8 mg/dL (8.5-10.5); Carbon Dioxide 23 mmol/L (22-29); Chloride 106 mmol/L (98-107); Creatinine Clr Calc Pharmacy 46.3633; Globulin 2.8 g/dL (1.3-4.6); Glucose 108 mg/dL (65-115); Magnesium 1.8 mg/dL (1.7-2.3); Osmolality Calculated 290 mOsm/kg (285-295); Phosphorus 2.8 mg/dL (2.5-4.5); Potassium 4.1 mmol/L (3.5-5.1); Sodium 138 mmol/L (136-145); Total Bilirubin 0.5 mg/dL (0.15-1.2); Total Protein 6.4 g/dL (6.6-8.7)
[2024-04-16] MEDS: predniSONE 5 mg Tablet PO (08:31)
[2024-04-16] MEDS: chlorhexidine gluconate 0.12% Btl 473 mL 30 ML MUCOUS MEM ×2 (08:31→11:47)
[2024-04-16] MEDS: venlafaxine ER (24HR) 37.5 mg Capsule PO (08:31)
[2024-04-16] MEDS: mupirocin oint 22 gm 1 APPLIC NASAL (08:31)
[2024-04-16] MEDS: multivitamin therapeutic Tablet 1 TAB PO (08:31)
[2024-04-16] MEDS: ropinirole 1 mg Tablet PO (08:31)
[2024-04-16] MEDS: iron polysaccharide complex 150 mg Capsule PO (08:31)
[2024-04-16] MEDS: levothyroxine 100 mcg Tablet PO (08:31)
[2024-04-16] MEDS: docusate sodium 100 mg Capsule PO (08:31)
[2024-04-16] MEDS: sodium chloride 0.9% 1,000 ML 75 ML IV (08:34)
--- NOTE | 2024-04-16 08:58 | USCV_ITS ---
Shiva Liang Age: 83 Gender: F : 1940 Exam Date: 04/16/2024 14:29 Ordering Phys: Jordan Sandhu MD Technologist: Exam Location: [facility] [place] Indication: bed stasis PROCEDURES: The venous duplex Doppler examination of both lower extremities was performed in the standard fashion. The following venous structures were evaluated: common femoral vein, profunda vein, proximal portion of the greater saphenous vein, superficial femoral vein, and the popliteal vein. In addition, the posterior tibial and peroneal trunk were evaluated. FINDINGS: Normal 2-D Doppler and augmentation and compressibility throughout the lower extremity venous structures. Additional imaging through the proximal calf veins also reveals no thrombus. Limited evaluation of the greater saphenous vein is patent with no thrombus. CONCLUSIONS No evidence of right lower extremity DVT. No evidence of left lower extremity DVT. Huang Moreno MD (Electronically Signed) Final Date: 16 April 2024 16:48 S
--- NOTE | 2024-04-16 11:12 | PM.DCS ---
Discharge Providers Date of Admission: 04/14/24 14:01 Date of Discharge: April 16, 2024 Attending Provider at Admission: Jordan Sandhu MD Attending Provider at Discharge: Jordan Sandhu MD Primary Care Provider: Bandar Curran MD Diagnoses at Discharge Discharge Diagnosis (1) Hip fracture, right: Status: Acute Reason for Visit Reason for Visit: fall - right hip/leg injury L arm injury Hospital Course Hospital Course Shiva Liang is a 83 year old female with a past medical history of a DVT many years ago, on Coumadin, history of back surgeries, with chronic back pain, on fentanyl patch, oxycodone, hypertension, hypothyroidism, history of autoimmune hepatitis on chronic prednisone, who presents to [facility] for a fall. Patient tells me that her is currently hospitalized at [facility], he had called her this morning and she was going to answer the phone, when she suddenly lost her balance and fell, no loss of consciousness, no significant head trauma, no preceding chest pain, palpitations, or strokelike symptoms, or seizure symptoms, no dysuria, hematuria, denies any chest pain, she tells me that she is fairly active, she has been raking the leaves on her yard, she typically cooks and cleans in the home, she denies a cardiovascular history, no history of chest pain no history of strokes, no history of COPD, no history of PE Patient was admitted to [facility] for right hip fracture status post right hip femoral neck closed reduction and percutaneous pinning, tolerated procedure well, discharged home, received inpatient PT OT, patient has declined home health care, declined intermediate placement for rehab. Patient takes Coumadin for her history of DVT, which was held for her right hip surgery. On discharge we had extensive discussion about switching her to Eliquis, discussed benefits, no need to monitor her INR, discussed risk and benefits, shared decision making, she voiced understanding, all questions answered. She agreed to proceed with Eliquis 5 mg twice daily. Discussed stopping Coumadin, advised her to discard her pills. Discussed Eliquis side effects including but not limited to risk of bleeding, anemia, GI bleeds, she voiced understanding, all questions answered. Patient was advised if she were to develop any bloody or black stools, any significant fall, any significant trauma to go to the emergency room. Physical Exam Const: COMMON NORMALS: no acute distress and patient oriented x3 Resp: COMMON NORMALS: normal respiratory effort, No retractions, No use of accessory muscles and clear to auscultation bilaterally AUSCULTATION: clear to auscultation bilaterally Cardio: COMMON NORMALS: regular rate, regular rhythm, S1 normal heart sound present and S2 normal heart sound present RATE: regular rate RHYTHM: regular rhythm HEART SOUNDS: S1 normal heart sound present and S2 normal heart sound present GI: COMMON NORMALS: Normal to inspection, nondistended, normoactive bowel sounds present and non-tender Extremity: COMMON NORMALS: no pedal edema Neuro: COMMON NORMALS: patient oriented x3 Psych: COMMON NORMALS: mental status grossly normal Urinary Catheter Management: Napoles: Cath Placed During This Visit: yes Urinary Catheter Date of Insertion: 04/14/24 Discharge Data Studies Completed and Pending Completed Studies During Hospitalization Category Date Time Status CT head wo con* [id number] Stat Cat Scan 04/14/24 14:[address] hip RT wo con* [id number] Stat Cat Scan 04/14/24 13:59 Completed XR chest 1V portable [id number] Stat Exams 04/14/24 13:36 Completed XR femur RT min 2V* [id number] Stat Exams 04/14/24 13:36 Completed XR forearm LT 2V [id number] Stat Exams 04/14/24 14:03 Completed XR hip RT 2-3V wo/w pel* [id number] Routine Exams 04/15/24 18:55 Completed XR hip RT 2-3V wo/w pel* [id number] Stat Exams 04/14/24 12:56 [place] [id number] Stat Exams 04/14/24 12:56 Completed Pending at discharge Category Date Time Status Basic Metabolic Panel AM LABS Lab 04/17/24 04:00 Ordered Basic Metabolic Panel AM LABS Lab 04/18/24 04:00 Ordered Complete Blood Count w/Auto AM LABS Lab 04/17/24 04:00 Ordered Complete Blood Count w/Auto AM LABS Lab 04/17/24 04:00 Ordered Complete Blood Count w/Auto AM LABS Lab 04/18/24 04:00 Ordered Comprehensive Metabolic Panel AM LABS Lab 04/17/24 04:00 Ordered Magnesium AM LABS Lab 04/17/24 04:00 Ordered Phosphorus AM LABS Lab 04/17/24 04:00 Ordered Prothrombin Time INR AM LABS Lab 04/17/24 04:00 Ordered Prothrombin Time INR AM LABS Lab 04/18/24 04:00 Ordered Urinalysis Routine Lab 04/15/24 17:39 Uncollected Urinalysis Stat Lab 04/14/24 13:37 [place] [id number] Routine Ultrasound 04/16/24 08:58 Ordered Radiology Impressions Humerus X-Ray 04/14/24 12:56 IMPRESSION: 1. No evidence of fracture or malalignment. Chest X-Ray 04/14/24 13:36 IMPRESSION: 1. No acute cardiopulmonary abnormality. ADDENDUM: 04/14/24 1421 Heart/Mediastinum: Suspected hiatal hernia. Cardiomediastinal silhouette is otherwise within normal limits. Femur X-Ray 04/14/24 13:36 IMPRESSION: 1. Acute femoral neck fracture on the right. Hip CT 04/14/24 13:59 IMPRESSION: Impacted and minimally angulated fracture through proximal and mid aspect of the right femoral neck. No dislocation. Forearm X-Ray 04/14/24 14:03 IMPRESSION: 1. No evidence of fracture or subluxation. Head CT 04/14/24 14:33 IMPRESSION: No acute findings. Hip/Pelvis X-Ray 04/15/24 18:55 IMPRESSION: As above. Laboratory Results WBC 11.43 10^3/uL (3.29-11.43) 04/16/24 05:43 RBC 3.81 10^6/uL (3.85-5.65) L 04/16/24 05:43 Hgb 12.10 g/dL (11.27-16.99) 04/16/24 05:43 Hct 36.7 % (36-47) 04/16/24 05:43 MCV 96.3 fl (85-98) 04/16/24 05:43 MCH 31.8 pg (27-33) 04/16/24 05:43 MCHC 33.0 g/dL (30-55) 04/16/24 05:43 RDW 13.7 % (12.1-15.1) 04/16/24 05:43 Plt Count 118 10^3/cmm (157-399) L 04/16/24 05:43 MPV 12.3 fL (7.4-10.4) H 04/16/24 05:43 Neut % (Auto) 82.1 % 04/16/24 05:43 Lymph % (Auto) 9.1 % 04/16/24 05:43 Jack % (Auto) 7.8 % 04/16/24 05:43 Eos % (Auto) 0.2 % 04/16/24 05:43 Baso % (Auto) 0.3 % 04/16/24 05:43 Neut # (Auto) 9.39 10^3/uL (1.8-7.7) H 04/16/24 05:43 Lymph # (Auto) 1.0 10^3/uL (0.8-4.8) 04/16/24 05:43 Jack # (Auto) 0.9 10^3/uL (0.2-0.9) 04/16/24 05:43 Eos # (Auto) 0.0 10^3/uL (0.0-0.8) 04/16/24 05:43 Baso # (Auto) 0.0 10^3/uL (0.0-0.1) 04/16/24 05:43 Nucleated RBC % (auto) 0 % 04/16/24 05:43 Nucleated RBCs # 0.0 /100WBC 04/16/24 05:43 PT 16.40 SECONDS (12.1-14.9) H 04/16/24 05:43 INR 1.28 (0.8-1.2) H 04/16/24 05:43 Sodium 138 mmol/L (136-145) 04/16/24 05:43 Potassium 4.1 mmol/L (3.5-5.1) 04/16/24 05:43 Chloride 106 mmol/L (98-107) 04/16/24 05:43 Carbon Dioxide 23 mmol/L (22-29) 04/16/24 05:43 Anion Gap 13.1 (5-19) 04/16/24 05:43 BUN 21 mg/dL (8-23) 04/16/24 05:43 Creatinine 0.8 mg/dL (0.5-0.9) 04/16/24 05:43 GFR Calculation Not Reportable 04/16/24 05:43 Glucose 108 mg/dL (65-115) 04/16/24 05:43 Estimat Average Glucose 114 04/14/24 14:00 Hemoglobin A1c 5.6 % (4.0-6.0) 04/14/24 14:00 Calculated Osmolality 290 mOsm/kg (285-295) 04/16/24 05:43 Calcium 8.8 mg/dL (8.5-10.5) 04/16/24 05:43 Phosphorus 2.8 mg/dL (2.5-4.5) 04/16/24 05:43 Magnesium 1.8 mg/dL (1.7-2.3) 04/16/24 05:43 Total Bilirubin 0.5 mg/dL (0.15-1.2) 04/16/24 05:43 AST 20 U/L (0-32) 04/16/24 05:43 ALT 15 U/L (0-33) 04/16/24 05:43 Alkaline Phosphatase 68 U/L (35-105) 04/16/24 05:43 C-Reactive Protein 3.0 mg/L (0.0-4.9) 04/14/24 14:00 NT-Pro-B Natriuret Pep 730 pg/mL (0-450) H 04/14/24 14:00 Total Protein 6.4 g/dL (6.6-8.7) L 04/16/24 05:43 Albumin 3.6 g/dL (3.5-5.2) 04/16/24 05:43 Globulin 2.8 g/dL (1.3-4.6) 04/16/24 05:43 Triglycerides 70 mg/dL (0-150) 04/14/24 14:00 Cholesterol 195 mg/dL (0-200) 04/14/24 14:00 LDL Cholesterol, Calc 109 mg/dL (50-129) 04/14/24 14:00 HDL Cholesterol 72 mg/dL (60-100) 04/14/24 14:00 LDL/HDL Ratio 1.51 RATIO (0.00-3.22) 04/14/24 14:00 Cholesterol/HDL Ratio 2.71 mg/dL (0.0-4.40) 04/14/24 14:00 Procalcitonin 0.09 ng/mL (0-0.5) 04/14/24 14:00 TSH 17.06 uIU/mL (0.27-4.20) H 04/14/24 14:00 Blood Type O Positive 04/15/24 13:09 Rho(D) Type Rh positive 04/15/24 13:09 Antibody Screen Negative 04/15/24 13:09 Vitals Last Vital Signs Temp 99.0 F 04/16/24 07:54 Pulse 62 04/16/24 07:54 Resp 17 04/16/24 07:54 BP 151/77 04/16/24 07:54 Pulse Ox 94 04/16/24 07:54 O2 Del Method Room Air 04/16/24 07:54 Discharge Plan Discharge Patient Disposition: Home Condition: Stable Prescriptions: New Eliquis 5 mg Tablet 5 mg PO BID@0900,2100 30 Days Qty: 60 0RF Continued ferrous sulfate 325 mg (65 mg iron) tablet 325 mg PO DAILY multivitamin Tablet 1 tab PO QAM cholecalciferol (vitamin D3) 5,000 unit capsule 5,000 unit PO DAILY ropinirole 1 mg tablet 1 mg PO BID Qty: 180 3RF prednisone 5 mg tablet 5 mg PO DAILY Qty: 90 3RF levothyroxine 100 mcg tablet 100 mcg PO DAILY Qty: 90 3RF fentanyl 75 mcg/hr patch 72 hour 1 patch topical Q48H 30 Days Qty: 15 0RF oxycodone-acetaminophen [Percocet] 10-325 mg tablet 1 tab PO Q6H PRN (Reason: pain) 30 Days Qty: 90 0RF potassium chloride 20 mEq tablet,ER particles/crystals 20 meq PO DAILY furosemide 80 mg tablet 80 mg PO DAILY PRN (Reason: Edema) Discontinued warfarin 5 mg tablet 5 mg PO DAILY Qty: 90 3RF aspirin 325 mg Tablet 325 mg PO Q4H Discharge Orders: Discharge Order (Routine); Ordered 04/16/24 Ordered By: Jordan Sandhu Other Ambulatory Orders: DME: Marek (Order) Location: None Selected Ordered By: Jordan Sandhu Referrals: Bandar Curran MD [Primary Care Provider] - Bhavin Griffin DO [Physician] - 05/02/24 11:00 am Discharge Diet: Cardiac Discharge Activity: As per PT/OT instructions Patient Instructions: Acute Wound Care (DC), Opioid Safety, Post Anesthesia Care Activity Restrictions/Additional Instructions: - Please stop taking Coumadin -Please start Eliquis 5 mg twice daily tonight -If you develop bloody or black stools, or if you develop significant bleeding, or significant fall with trauma please immediately go to the emergency room -Please have your primary care provider recheck your CBC in 1 week -Please ambulate with care Discharge Attestations Time Spent in Discharge Care*: greater than 30 min Quality Metrics Clinical Quality Measures [ No reported AMI, CVA or VTE this stay] Coding Level of Care Code 11211 Total time (in minutes) for Discharge: 45 Diagnoses Hip fracture, right S72.001A
[2024-04-16 12:03] LABS: Bilirubin Urine Negative (Negative); Blood Urine Negative (Negative); Glucose Urine UA Negative (Normal); Ketones Urine Negative (Negative); Leukocyte Esterase Urine Negative (Negative); Nitrate Urine Negative (Negative); Protein Urine Negative (Negative); Specific Gravity, Urine 1.026 (1.005-1.030); Urine Appearance Clear (CLEAR); Urine Color Yellow (Yellow); Urobilinogen Urine 0.2 mg/dL (Negative); pH Urine 5.5 (5-7)
[2024-04-16 12:08] LABS: Add Urine Microscopic? YES; Bacteria Urine None Seen /hpf; Hyaline Casts Urine 0.81 /lpf; RBC Urine 0-2 /hpf (0-2); Squamous Epithelial Cell Urine 0-5 /hpf (0-5); WBC Urine 0-5 /hpf (0-5)
--- NOTE | 2024-04-16 13:24 | P.PN_ITS ---
Vitals/I&O/Wt Last Vital Signs Temp 98.1 F 04/16/24 12:00 Pulse 52 L 04/16/24 12:00 Resp 18 04/16/24 12:30 BP 154/66 04/16/24 12:00 Pulse Ox 98 04/16/24 12:30 O2 Del Method Room Air 04/16/24 12:00 04/15/24 04/16/24 04/16/24 22:59 06:59 14:59 Intake Total 650 / 2110 240 / 2350 2330.0 / 2330.0 Output Total 200 / 200 Balance 640 / 2100 240 / 2340 2130.0 / 2130.0 Weight last 48 hrs Weight 105 lb Weight 105 lb Weight 105 lb Physical Exam 2 Urinary Catheter Management: Napoles: Cath Placed During This Visit: yes Urinary Catheter Date of Insertion: 04/14/24 Data 04/16/24 05:43 04/16/24 05:43 Coding Level of Care Code Acute Code for Chg Kristen
--- NOTE | 2024-04-16 13:47 | PC.NURSE ---
D/C pending venous duplex U/S to rule out DVT and meds to beds.
== END 2024-04-16 14:54 | disposition home or self-care (01) | DRG 482 ==
LOC: ER 14:53 → MEDSURG 16:00
PROVIDERS: Physician Assistant; Student in an Organized Health Care Education/Training Program; Admitting Provider Family Medicine; Emergency Provider Family Medicine; PCP Internal Medicine; Visit Provider Family Medicine
PROC: 0QH634Z Insertion of Internal Fixation Device into Right Upper Femur, Percutaneous Approach (ICD-10-PCS; CPT 27236; principal; 2024-04-15 16:00)
DX: S72.001A Fracture of unspecified part of neck of right femur, initial encounter for closed fracture (principal); W18.30XA Fall on same level, unspecified, initial encounter; Z79.52 Long term (current) use of systemic steroids; Z79.01 Long term (current) use of anticoagulants; Z79.82 Long term (current) use of aspirin; E03.9 Hypothyroidism, unspecified; G25.81 Restless legs syndrome; Z98.1 Arthrodesis status; Z85.42 Personal history of malignant neoplasm of other parts of uterus; G89.29 Other chronic pain; K75.4 Autoimmune hepatitis; Z87.891 Personal history of nicotine dependence; Z86.718 Personal history of other venous thrombosis and embolism; I10 Essential (primary) hypertension; Z80.1 Family history of malignant neoplasm of trachea, bronchus and lung; Z83.3 Family history of diabetes mellitus; Z82.49 Family history of ischemic heart disease and other diseases of the circulatory system
CPT/HCPCS: 36415; 51702; 70450; 71045; 73060; 73090; 73502; 73552; 73700; 76000; 80048; 80053; 80061; 81001; 83036; 83735; 83880; 84100; 84145; 84443; 85025; 85610; 86140; 86850; 86900; 93005; 93970; 94664; 96372; 96374; 97116; 97161; 97166; 99285; C1713 ×2; J0131; J0690; J1100; J1650; J1885; J2270; J2371; J2405; J2470; J2704; J3010; J3490; J7030; J7120; J7512

== ENCOUNTER → 2024-05-02 11:06 | Outpatient (BNVA) | payer MEDICARE, SELFPAY | PROVIDERS: PCP Internal Medicine; Visit Provider Physician Assistant | DX: S72.001D Fracture of unspecified part of neck of right femur, subsequent encounter for closed fracture with routine healing; X58.XXXD Exposure to other specified factors, subsequent encounter | CPT/HCPCS: 73502; 99024 ==